=== PATIENT | female | born 1940 | race Caucasian/White ===

== ENCOUNTER 2018-10-04 18:29 | Outpatient (REF) | payer MEDICARE, SELFPAY ==
[2018-10-04 22:13] LABS: Bilirubin Negative (Negative); Blood Negative (Negative); Clarity Sl Cloudy; Glucose Negative (Negative); Ketones Trace mg/dL (Negative); Leukocyte Esterase Negative (Negative); Nitrite Negative (Negative); Specific Gravity 1.015 (1.005-1.025)
== END 2018-10-04 18:49 ==
LOC: NCHCN 18:29
PROVIDERS: Visit Provider Family Medicine
DX: R31.0 Gross hematuria (principal)
CPT/HCPCS: 87077; 81003; 87086; 87186

== ENCOUNTER 2018-11-23 21:20 | Outpatient (REF) | payer MEDICARE, SELFPAY ==
[2018-11-23 21:57] LABS: Anion Gap 3.8 mmol/L (3-11); BUN 25 mg/dL (7-18); CO2 33.2 mmol/L (21.0-32.0); Calcium 8.4 mg/dL (8.5-10.1); Chloride 106 mmol/L (98-107); Glucose 121 mg/dL (70-100); Potassium 4.4 mmol/L (3.5-5.1); Sodium 143 mmol/L (136-145)
== END 2018-11-23 21:40 ==
LOC: LBN 21:20
PROVIDERS: Visit Provider Family Medicine
DX: J44.9 Chronic obstructive pulmonary disease, unspecified (principal); M06.9 Rheumatoid arthritis, unspecified; E03.9 Hypothyroidism, unspecified; F41.9 Anxiety disorder, unspecified
CPT/HCPCS: 80048

== ENCOUNTER 2018-12-05 21:17 | Outpatient (REF) | payer MEDICARE, SELFPAY ==
[2018-12-05 22:28] LABS: Bilirubin Negative (Negative); Blood Trace-intact (Negative); Clarity Clear; Glucose Negative (Negative); Ketones Negative (Negative); Leukocyte Esterase Trace (Negative); Nitrite Negative (Negative); pH 6.5 (5-8)
[2018-12-05 22:39] LABS: Bacteria Many HPF (Negative); C & S Indicated? C&S Done As Ordered; Casts Negative LPF (Negative); Epithelial Cells Rare HPF (Negative); Mucus Negative (Negative); RBC 0-2 (0-2); WBC 0-2 HPF (0-5)
== END 2018-12-05 21:37 ==
LOC: NCHCN 21:17
PROVIDERS: Visit Provider Family Medicine
DX: N39.0 Urinary tract infection, site not specified (principal)
CPT/HCPCS: 87077; 81003; 81015; 87086; 87186

== ENCOUNTER 2019-01-09 21:37 | Outpatient (REF) | payer MEDICARE, SELFPAY ==
[2019-01-09 22:11] LABS: Anion Gap 7.8 mmol/L (3-11); BUN 22 mg/dL (7-18); CO2 28.2 mmol/L (21.0-32.0); Chloride 101 mmol/L (98-107); Glucose 132 mg/dL (70-100); Potassium 4.1 mmol/L (3.5-5.1); Sodium 137 mmol/L (136-145)
== END 2019-01-09 21:57 ==
LOC: NCHCN 21:37
PROVIDERS: Visit Provider Family Medicine
DX: J44.9 Chronic obstructive pulmonary disease, unspecified (principal); M06.9 Rheumatoid arthritis, unspecified; E03.9 Hypothyroidism, unspecified
CPT/HCPCS: 80048

== ENCOUNTER 2019-03-06 18:27 | Outpatient (REF) | payer MEDICARE, SELFPAY | END 2019-03-06 18:47 | LOC: LBN 18:27 | PROVIDERS: Visit Provider Family Medicine | DX: R50.9 Fever, unspecified (principal) | CPT/HCPCS: 87449 ==